=== PATIENT | male | born 1960 | race Caucasian/White ===

== ENCOUNTER → 2024-08-02 15:31 | Outpatient (REF) | payer BC, SELFPAY | LOC: HWRAD 15:31 | PROVIDERS: ATTENDING PHYSICIAN Family Medicine; FAMILY PHYSICIAN Family Medicine | DX: J01.40 Acute pansinusitis, unspecified (principal); M54.12 Radiculopathy, cervical region | CPT/HCPCS: 72052 ==

== ENCOUNTER → 2024-09-01 11:17 | Outpatient (REF) | payer BC, SELFPAY | LOC: HWRAD 11:17 | PROVIDERS: ATTENDING PHYSICIAN Physician Assistant Medical; FAMILY PHYSICIAN Family Medicine | DX: M54.41 Lumbago with sciatica, right side (principal) | CPT/HCPCS: 72110 ==

== ENCOUNTER 2024-09-01 17:59 | Emergency (ER) | payer BC, SELFPAY ==
[2024-09-01 18:03] VITALS: BP 153/95
--- NOTE | 2024-09-01 19:40 | ED.GENMED ---
History of Present Illness
General
Chief Complaint: Back Pain
Source: patient
Exam Limitations: none
Time Seen by Provider: 09/01/24 18:44
History of Present Illness
History of Present Illness:
64yoM with no significant past medical history presenting with his for evaluation of back pain. Symptoms began yesterday morning when he woke up from sleep. He reports pain in his right lower back/buttock region which radiates down into his
posterior leg. Pain is described as feeling like electric shocks that intermittently go down the leg. Pain is worse with movement and weightbearing. He was seen by his PCP yesterday for the symptoms and was diagnosed with sciatica. He was given
a prescription for a prednisone taper. He has also been taking Flexeril 10 mg as needed. He took 1 dose of ibuprofen this morning but has not taken anything else [id number] today. is concerned because his leg felt cool to touch. He
does report some tingling in his foot. No fevers, saddle anesthesia, incontinence. No prior back surgeries. He had outpatient lumbar spine x-rays today which showed mild to moderate multilevel disc disease. He has an appointment scheduled with
orthopedics in 4 days.
Phy Exam
General Physical Exam
General Presentation: well appearing
General Skin: warm and dry
General Habitus: normal
General Mental: alert
ENT Exam
ENT Exam: normocephalic
Pulmonary Exam
Pulmonary Exam: no respiratory distress
Neurological Exam
Neurological Exam: alert
Whitney Coma Scale
Eye Opening: Spontaneous
Verbal Response: Oriented
Motor Response: Obeys Commands
GCS Total Score: 15
Musculoskeletal Exam
Musculoskeletal Exam: other (No tenderness to palpation of the lumbar region. Pain elicited with standing although patient able to ambulate unassisted. No skin changes. No pitting edema to lower extremities. 2+ DP pulses bilaterally. )
Skin Exam
Skin Exam: normal color and warm/dry
Psychiatric Exam
Psychiatric Exam: normal mood/affect
Course
Orders/Labs/Results
Orders:
Orders
09/01/24 19:39
Acetaminophen [Tylenol] 1,000 mg PO NOW STA
Gabapentin [Neurontin] 300 mg PO NOW STA
Ketorolac [Toradol] 30 mg IM NOW STA
Lidocaine [Lidocaine 4% Patch] 1 patch TOPICAL NOW STA
Apply Lidocaine patch(s) to:: R low back
Vital Signs
Initial and Last Documented VS:
Initial Vital Signs
Temp Pulse Resp BP Pulse Ox
98.4 F 88 16 153/95 97
09/01/24 18:03 09/01/24 18:03 09/01/24 18:03 09/01/24 18:03 09/01/24 18:03
Last Documented Vital Signs
Temp Pulse Resp BP Pulse Ox
98.4 F 68 16 158/95 95
09/01/24 18:03 09/01/24 20:09 09/01/24 20:09 09/01/24 20:09 09/01/24 20:09
MDM/Problems Addressed
Differential Diagnosis Includes:
64yoM here with atraumatic R lower back/buttock pain radiating down R posterior leg x 2 days. Diagnosed with sciatica yesterday. On prednisone and Flexeril without improvement. No red flags in history including no fever, saddle anesthesia,
incontinence. concerned that the R leg feels cool to touch although this is not objectively appreciated. There are palpable DP pulses bilaterally and this was confirmed with doppler. Differential diagnosis includes but is not limited to:
Sciatica, lumbar radiculopathy, no clinical evidence of DVT, x-ray earlier today was negative for fractures
IM Toradol, lidocaine patch, and Tylenol ordered for symptom relief. Prescription provided for gabapentin to try. He does have appointment with orthopedics scheduled in 4 days. ED return precautions reviewed. Patient discharged in stable
condition.
*Critical Care Note
Total Time (30-74mins, 75-104mins- exclusive of procedures): Not Applicable
ED Attending Note
-
Portions of this chart may have been created with voice recognition software.� Occasional wrong word or��sound alike� substitutions may have occurred due to the inherent limitations of voice recognition software.
Discharge Plan
Departure
Patient Disposition: Home (Routine Discharge)
Date of Disposition: 09/01/24
Time of Disposition: 19:42
Patient with high blood pressure during this ER visit?: Yes
Discharge Problem:
Right sided sciatica
Instructions: Sciatica (DC)
Prescriptions:
New
gabapentin 300 mg capsule
300 mg PO BID PRN (Reason: nerve pain) Qty: 20 0RF
Referrals:
Dhaval Cantor MD [Active] -
Activity Restrictions/Additional Instructions:
Continue prednisone. Take Tylenol 650mg and ibuprofen 400mg-600mg every 6 hours as needed. Use lidocaine patches daily (12 hours on, 12 hours off). Take gabapentin as needed for pain.
Please follow-up with orthopedics next week. Return to the ER with any new or worsening symptoms.
Interventions
Interventions:
*Risk Screen - Suicide Last Done: 09/01/24 18:03
*General Assessment Last Done: 09/01/24 20:27
*Neglect/Abuse Screening Last Done: 09/01/24 18:03
*Nursing Disposition Last Done: 09/01/24 20:27
ED-Musculoskeletal Assessment Last Done: 09/01/24 20:09
Discharge Date and Time
Discharge Date/Time: 09/01/24 20:27
Print Language: AZERI
[2024-09-01] MEDS: NEURONTIN 300 MG PO (19:59)
[2024-09-01] MEDS: TYLENOL 1000 MG PO (19:59)
[2024-09-01] MEDS: TORADOL 30 MG IM (20:03)
[2024-09-01 20:09] VITALS: BP 158/95
[2024-09-01] MEDS: LIDOCAINE 4% PATCH 1 PATCH TOPICAL (20:10)
== END 2024-09-01 20:27 | disposition home or self-care (01) ==
LOC: EMR 17:59
PROVIDERS: EMERGENCY PHYSICIAN Emergency Medicine; FAMILY PHYSICIAN Family Medicine
DX: M54.41 Lumbago with sciatica, right side (principal)
CPT/HCPCS: 96372; 99284; 72110

== ENCOUNTER → 2024-09-05 11:04 | Outpatient (REF) | payer BC, SELFPAY | LOC: HWRAD 11:04 | PROVIDERS: ATTENDING PHYSICIAN Physician Assistant; FAMILY PHYSICIAN Family Medicine | DX: M54.12 Radiculopathy, cervical region (principal); M54.16 Radiculopathy, lumbar region | CPT/HCPCS: 72125; 72131 ==

== ENCOUNTER 2025-01-22 08:59 | Outpatient (RCR) | payer BC, SELFPAY | END 2025-01-22 23:59 | disposition home or self-care (01) | LOC: RPT 08:59 | PROVIDERS: ATTENDING PHYSICIAN Physician Assistant Medical; FAMILY PHYSICIAN Family Medicine | DX: Z47.89 Encounter for other orthopedic aftercare (principal); M48.061 Spinal stenosis, lumbar region without neurogenic claudication; Z98.890 Other specified postprocedural states; Z73.6 Limitation of activities due to disability; M79.604 Pain in right leg | CPT/HCPCS: 97110; 97162 ==

== ENCOUNTER → 2025-02-20 09:27 | Outpatient (REF) | payer BC, SELFPAY | LOC: HWRAD 09:27 | PROVIDERS: ATTENDING PHYSICIAN Physician Assistant Medical; FAMILY PHYSICIAN Family Medicine | DX: M54.16 Radiculopathy, lumbar region (principal); M48.062 Spinal stenosis, lumbar region with neurogenic claudication | CPT/HCPCS: 72131 ==

== ENCOUNTER 2025-02-21 07:34 | Outpatient (RCR) | payer BC, SELFPAY | END 2025-02-21 23:59 | disposition home or self-care (01) | LOC: RPT 07:34 | PROVIDERS: ATTENDING PHYSICIAN Physician Assistant Medical; FAMILY PHYSICIAN Family Medicine | DX: Z47.89 Encounter for other orthopedic aftercare (principal); M48.061 Spinal stenosis, lumbar region without neurogenic claudication; Z73.6 Limitation of activities due to disability; M79.604 Pain in right leg | CPT/HCPCS: 97110; 97140 ==

== ENCOUNTER 2025-03-13 06:54 | Outpatient (RCR) | payer BC, SELFPAY | END 2025-03-13 23:59 | disposition home or self-care (01) | LOC: RPT 06:54 | PROVIDERS: ATTENDING PHYSICIAN Physician Assistant Medical; FAMILY PHYSICIAN Family Medicine | DX: Z47.89 Encounter for other orthopedic aftercare (principal); M48.061 Spinal stenosis, lumbar region without neurogenic claudication; Z73.6 Limitation of activities due to disability; M79.604 Pain in right leg | CPT/HCPCS: 97110; 97140 ==

== ENCOUNTER 2025-04-18 06:49 | Outpatient (RCR) | payer BC, SELFPAY | END 2025-04-23 07:12 | disposition home or self-care (01) | LOC: RPT 06:49 | PROVIDERS: ATTENDING PHYSICIAN Physician Assistant Medical; FAMILY PHYSICIAN Family Medicine | DX: Z47.89 Encounter for other orthopedic aftercare (principal); M48.061 Spinal stenosis, lumbar region without neurogenic claudication; Z73.6 Limitation of activities due to disability; M79.604 Pain in right leg | CPT/HCPCS: 97110 ==